=== PATIENT | female | born 1970 | race Caucasian/White ===

== ENCOUNTER 2021-09-16 09:43 | Emergency (ER) | payer OTHER ==
[~2021-09-16] VITALS: Ht 167.6 cm; Wt 86.2 kg
[2021-09-16] MEDS ORDERED: LIPITOR40 MG PO (09:54)
[2021-09-16] MEDS ORDERED: LISINOPRIL20 MG PO (09:54)
[2021-09-16] MEDS ORDERED: PREDNISONE 20 M20 MG PO (09:55)
[2021-09-16] MEDS ORDERED: METHOCARBAMOL500 M2 PO (09:55)
[2021-09-16] MEDS ORDERED: OMEPRAZOLE 20 M20 M1 PO (09:56)
[2021-09-16] MEDS ORDERED: FLEXERIL PO (09:56)
[2021-09-16] MEDS ORDERED: MELOXICAM7.5 MG PO (09:56)
[2021-09-16] MEDS ORDERED: TRAMADOL 50 MG50 MG PO (09:56)
[2021-09-16] MEDS ORDERED: HYDROCODON-ACE1 EAC7 PO (09:56)
[2021-09-16] MEDS ORDERED: NORCO5 PO (10:02)
[2021-09-16] MEDS ORDERED: MEDROLDOSEPACK PO (10:02)
[2021-09-16 10:11] VITALS: BP 171/94
== END 2021-09-16 10:12 | disposition home or self-care (01) ==
LOC: M.ERS 09:43
DX: M54.12 Radiculopathy, cervical region (principal); I10 Essential (primary) hypertension; E78.5 Hyperlipidemia, unspecified; Z79.899 Other long term (current) drug therapy